=== PATIENT | female | born 1955 | race African-American/Black ===

== ENCOUNTER 2018-03-18 08:32 | Outpatient (CLI) | payer MEDICARE, MEDICAID ==
[2018-03-18] MEDS ORDERED: ISOVUE-370 76%-LOCM 1 ML ONE (12:13)
== END 2018-03-18 08:33 | disposition home or self-care (01) ==
LOC: BICCT 08:32
PROVIDERS: ATTEND Internal Medicine Gastroenterology
DX: R93.2 Abnormal findings on diagnostic imaging of liver and biliary tract (principal); R18.8 Other ascites; K74.60 Unspecified cirrhosis of liver; Z86.19 Personal history of other infectious and parasitic diseases
CPT/HCPCS: 74170

== ENCOUNTER 2018-05-28 09:26 | Outpatient (CLI) | payer MEDICARE, MEDICAID | END 2018-05-28 09:27 | disposition home or self-care (01) | LOC: BICMAMMO 09:26 | DX: Z12.31 Encounter for screening mammogram for malignant neoplasm of breast (principal); Z80.3 Family history of malignant neoplasm of breast | CPT/HCPCS: 77063; 77067 ==

== ENCOUNTER 2018-12-28 09:06 | Outpatient (CLI) | payer MEDICARE, MEDICAID ==
[2018-12-28] MEDS ORDERED: ISOVUE-370 76%-LOCM 1 ML ONE (09:59)
--- NOTE | 2018-12-28 12:23 | CT ---
CT ABDOMEN WITH AND WITHOUT IV CONTRAST: Date: 12/28/18 HISTORY: Cirrhosis. Chronic liver disease. COMPARISON: 03/18/18. FINDINGS: The superiormost image shows a [id number] subtle parenchymal opacity at the anterior left lateral costophrenic angle of the lung. Gallbladder is surgically absent. Postoperative changes of the anterior abdominal wall. Calcification within the arterial structures. Nodular contour of the liver, consistent with cirrhosis, is unchanged in appearance from the prior st udy. The tiny low density lesion within the far inferior aspect of the right liver lobe, measuring 0. 7 cm greatest diameter, is unchanged in size and appearance. No new liver lesions are apparent. No free fluid within the abdomen. The pelvis was not imaged. IMPRESSION: 1. Stable CT appearance of the very small low density lesion within the inferior aspect of the right liver lobe. Probable cyst. No new abnormalities are demonstrated. 2. Atherosclerosis. 3. New subtle minimal patchy infiltrate at the lateral aspect of the left lung base. Possible small focus of pneumonitis. [id number] appearance. POS: [facility]
== END 2018-12-28 09:07 | disposition home or self-care (01) ==
LOC: BICCT 09:06
PROVIDERS: ATTEND Internal Medicine Gastroenterology
DX: K74.60 Unspecified cirrhosis of liver (principal); I70.0 Atherosclerosis of aorta; R91.8 Other nonspecific abnormal finding of lung field; K76.89 Other specified diseases of liver
CPT/HCPCS: 74170; 82565

== ENCOUNTER 2019-05-31 11:05 | Outpatient (CLI) | payer MEDICARE, MEDICAID ==
--- NOTE | 2019-05-31 14:24 | MMO ---
Bilateral MAMMO Bilat Screen [facility]. CLINICAL HISTORY: Patient is 63 years old and is seen for screening. The patient has the following family history of breast cancer: mother, at age 72, malignant (generic). The patient has no personal history of cancer. VIEWS: The views performed were: bilateral craniocaudal with tomosynthesis and bilateral mediolateral oblique with tomosynthesis. FILMS COMPARED: The present examination has been compared to prior imaging studies performed at [facility] on 03/29/2015, 04/01/2016, 05/27/2017 and 05/28/2018. MAMMOGRAM FINDINGS: There are scattered fibroglandular densities. Benign calcifications are noted bilaterally. There are no suspicious masses, suspicious calcifications, or new areas of architectural distortion. IMPRESSION: THERE IS NO MAMMOGRAPHIC EVIDENCE OF MALIGNANCY. A ROUTINE FOLLOW-UP MAMMOGRAM IN 1 YEAR IS RECOMMENDED. THE RESULTS OF THIS EXAM WERE SENT TO THE PATIENT. ACR BI-RADS Category 2 - Benign finding MAMMOGRAPHY NOTE: 1. A negative mammogram report should not delay a biopsy if a dominant of clinically suspicious mass is present. 2. Approximately 10% to 15% of breast cancers are not detected by mammography. 3. Adenosis and dense breasts may obscure an underlying neoplasm. Reported by: MOJGAN LOPEZ MD Electonically Signed: [id number]
== END 2019-05-31 11:06 | disposition home or self-care (01) ==
LOC: BICMAMMO 11:05
PROVIDERS: ATTEND Physician Assistant
DX: Z12.31 Encounter for screening mammogram for malignant neoplasm of breast (principal); Z80.3 Family history of malignant neoplasm of breast
CPT/HCPCS: 77063; 77067

== ENCOUNTER 2019-07-27 09:03 | Outpatient (CLI) | payer MEDICARE, MEDICAID ==
--- NOTE | 2019-07-27 11:17 | ULT ---
ULTRASOUND HEPATIC DOPPLER: Date: 07/27/19 HISTORY: Cirrhosis. COMPARISON: CT 12/28/18. FINDINGS: Real-time and Cr[place]tree scale and color Doppler and spectral analysis of the liver and hepatic vessels was performed. Visualized portions of the aorta, IVC, and pancreas unremarkable. Hepatic contour is nodular. The ech otexture is coarsened. No hepatic mass is appreciated. Prior cholecystectomy. The previously described hepatic cyst is not well seen. Normal directional flow within the hepatic vessels, including the portal vessels, which are patent. H epatic artery is patent with normal directional flow. Liver measures 17.2 cm in length. Common bile duct is normal, measuring 4 mm. Spleen is enlarged, nicholas suring 12.1 cm. Splenic vessels are patent. IMPRESSION: 1. Hepatic cirrhosis without visualized mass. 2. Patent portal vein. 3. Enlarged spleen suggesting early portal hypertension. POS: [facility]
== END 2019-07-27 09:04 | disposition home or self-care (01) ==
LOC: BICULT 09:03
PROVIDERS: ATTEND Physician Assistant Medical
DX: K74.60 Unspecified cirrhosis of liver (principal); R16.1 Splenomegaly, not elsewhere classified
CPT/HCPCS: 76705

== ENCOUNTER 2020-03-23 08:44 | Outpatient (CLI) | payer MEDICARE, MEDICAID ==
[2020-03-23 09:24] LABS: Estimated GFR-MDRD - POC Greater than 90
--- NOTE | 2020-03-23 09:53 | CT ---
Exam: Abdomen CT with and without contrast HISTORY: Liver cirrhosis. Hepatitis C. Hepatic cyst COMPARISON: 12/28/2018, 03/18/2018, 10/31/2016 TECHNIQUE: Abdomen CT is performed with and without IV contrast. FINDINGS: Lung bases: Clear Heart: Normal heart size. No significant pericardial fluid Aorta: Scattered atherosclerosis. No aneurysm, dissection or periaortic fat stranding Liver: Nodularity compatible with cirrhosis. No abnormal enhancement on the arterial phase image. No abnormal enhancement on the delayed images. There is a hypodensity in the sixth hepatic segment measuring 0.7 cm. Hypodensity is unchanged from the previous examination as well as the examination f rom 10/31/2016.. Lesion continues to be indeterminate. Spleen: Appropriate enhancement Pancreas: Appropriate enhancement Adrenal glands: Symmetric enhancement Lymph nodes: No gastrohepatic, retrocrural or periportal lymphadenopathy Portal vein: Patent Gallbladder: Surgically absent Kidneys: Noncontrast: No hydronephrosis, nephrolithiasis or perinephric fat stranding Contrast: Symmetric enhancement of the renal parenchyma Delayed: Symmetric enhancement. Mesentery: No mass, nephropathy, free air or free fluid Alimentary canal: Limited evaluation due to lack of oral contrast administration. No evidence of val l obstruction. The ileocecal junction is normal. Normal caliber appendix. Scattered fecal material in a nondistended/nondilated colon. No lytic or blastic lesions in the osseous structures IMPRESSION: 1. Stable nodularity of the liver compatible with patient's history of cirrhosis. 2. Stable 0.7 cm hypodensity in the right hepatic lobe.
[2020-03-23] MEDS ORDERED: Iopamidol 370 76% 100 ML VIAL ONE (09:56)
== END 2020-03-23 08:45 | disposition home or self-care (01) ==
LOC: BICCT 08:44
PROVIDERS: ATTEND Physician Assistant Medical
DX: K74.60 Unspecified cirrhosis of liver (principal); R93.3 Abnormal findings on diagnostic imaging of other parts of digestive tract; K76.89 Other specified diseases of liver
CPT/HCPCS: 74170; 82565; Q9967

== ENCOUNTER 2020-07-19 15:40 | Outpatient (CLI) | payer MEDICARE, MEDICAID ==
--- NOTE | 2020-07-19 16:05 | MMO ---
Bilateral MAMMO Bilat Screen [facility]. CLINICAL HISTORY: Patient is 65 years old and is seen for screening. The patient has the following family history of breast cancer: mother, at age 72, malignant (generic). The patient has no personal history of cancer. VIEWS: The views performed were: bilateral craniocaudal with tomosynthesis and bilateral mediolateral oblique with tomosynthesis. FILMS COMPARED: The present examination has been compared to prior imaging studies performed at [facility] on 04/01/2016, 05/27/2017, 05/28/2018 and 05/31/2019. This study has been interpreted with the assistance of computer-aided detection. MAMMOGRAM FINDINGS: There are scattered fibroglandular densities. There are no suspicious masses, suspicious calcifications, or new areas of architectural distortion. IMPRESSION: THERE IS NO MAMMOGRAPHIC EVIDENCE OF MALIGNANCY. A ROUTINE FOLLOW-UP MAMMOGRAM IN 1 YEAR IS RECOMMENDED. THE RESULTS OF THIS EXAM WERE SENT TO THE PATIENT. ACR BI-RADS Category 1 - Negative MAMMOGRAPHY NOTE: 1. A negative mammogram report should not delay a biopsy if a dominant of clinically suspicious mass is present. 2. Approximately 10% to 15% of breast cancers are not detected by mammography. 3. Adenosis and dense breasts may obscure an underlying neoplasm. Reported by: GEGE LR MD Electonically Signed: [id number]
== END 2020-07-19 15:41 | disposition home or self-care (01) ==
LOC: BICMAMMO 15:40
PROVIDERS: ATTEND Physician Assistant
DX: Z12.31 Encounter for screening mammogram for malignant neoplasm of breast (principal); Z80.3 Family history of malignant neoplasm of breast
CPT/HCPCS: 77063; 77067

== ENCOUNTER 2020-09-17 08:28 | Outpatient (CLI) | payer MEDICARE, MEDICAID ==
--- NOTE | 2020-09-17 09:05 | ULT ---
Hepatic ultrasound with duplex evaluation INDICATION: History of cirrhosis TECHNIQUE: Grayscale, color Doppler and spectral Doppler images were obtained of the liver, gallbladd er, common bile duct, pancreas, right kidney and spleen. COMPARISON: Prior hepatic duplex ultrasound dated July 27, [address] the abdomen with and wi thout contrast dated March 23, 2020 FINDINGS: Liver: There is a coarse echotexture of the liver with a nodular contour consistent with changes of c irrhosis. The liver measures 17.02 cm in length. No focal hepatic lesion is demonstrated. Hepatic vasculature: Left hepatic vein: Appropriate flow. Middle hepatic vein: Appropriate flow. Right hepatic vein: Appropriate flow. Hepatic artery: Hepatopedal flow. Main portal vein: Hepatopedal flow. Right portal vein: Hepatopedal flow. Left portal vein: Hepatopedal flow. Splenic artery: Appropriate flow. Splenic vein: Hepatopedal flow. Aorta: Appropriate flow. IVC: Appropriate flow. Gallbladder: Surgically absent Common bile duct: 7.5 mm. Pancreas: Visualized pancreas appears within normal limits. Right kidney: Partially visualized normal appearing Spleen: The spleen measured 11.7cm in length. IMPRESSION: 1. Cirrhotic morphology of the liver without focal hepatic lesion. Appropriate hepatopedal flow. 2. Cholecystectomy .
== END 2020-09-17 08:29 | disposition home or self-care (01) ==
LOC: BICULT 08:28
PROVIDERS: ATTEND Internal Medicine Gastroenterology
DX: K74.60 Unspecified cirrhosis of liver (principal); R93.3 Abnormal findings on diagnostic imaging of other parts of digestive tract; Z90.49 Acquired absence of other specified parts of digestive tract
CPT/HCPCS: 76705

== ENCOUNTER 2021-07-22 14:41 | Outpatient (CLI) | payer MEDICARE, MEDICAID | END 2021-07-22 14:42 | disposition home or self-care (01) | LOC: BICMAMMO 14:41 | PROVIDERS: ATTEND Physician Assistant | DX: Z12.31 Encounter for screening mammogram for malignant neoplasm of breast (principal); Z80.3 Family history of malignant neoplasm of breast | CPT/HCPCS: 77063; 77067 ==

== ENCOUNTER 2022-07-24 08:21 | Outpatient (CLI) | payer OTHER, MEDICAID | END 2022-07-24 08:22 | disposition home or self-care (01) | LOC: BICMAMMO 08:21 | PROVIDERS: ATTEND Physician Assistant | DX: Z12.31 Encounter for screening mammogram for malignant neoplasm of breast (principal); Z80.3 Family history of malignant neoplasm of breast | CPT/HCPCS: 77063; 77067 ==

== ENCOUNTER 2023-06-25 19:44 | Inpatient (IN) | payer OTHER ==
[~2023-06-25 19:44] MED LIST: Iopamidol-370 76% 500 ML MDV (1 ML CHARGE) ONE
[2023-06-25 20:27] LABS: #Basophils 0.1 thou/uL (0.0-0.2); #Monocytes 1.6 thou/uL (0.11-0.59); #Neutrophils 16.6 thou/uL (1.40-6.50); %Basophils 0.3 % (0.0-1.0); %Eosinophils 0.1 % (0.0-10.0); %Lymphocytes 8.6 % (21.0-51.0); Hematocrit 30.4 % (36.0-47.0); Hemoglobin 9.5 g/dL (12.0-16.0); Mean Corpuscular HGB CONC 31.3 g/dL (32.0-36.0); Mean Corpuscular Hemoglobin 28.2 pg (27.0-31.0); Mean Corpuscular Volume 90.2 fl (78.0-98.0); Mean Platelet Volume 13.8 fL (7.4-10.4); Platelet Count 111 10x3/uL (130-400); RBC Distribution Width 12.8 % (11.5-14.5); Red Blood Cell (RBC) Count 3.37 mill/uL (4.20-5.40); White Blood Cell (WBC) Count 20.2 10x3/uL (4.8-10.8)
[2023-06-25 20:57] LABS: ALT (SGPT) 20 U/L (8-55); AST (SGOT) 20 U/L (5-34); Albumin 3.2 g/dL (3.4-4.8); Alkaline Phosphatase 90 U/L (40-110); Anion Gap 11 mmol/L (10-20); BUN (Urea Nitrogen) 20 mg/dL (9.8-20.1); Bilirubin, Total 0.9 mg/dL (0.2-1.2); Calc. Creatinine Clearance 0 mL/min (70-130); Calcium 8.5 mg/dL (7.8-10.44); Carbon Dioxide 24 mmol/L (23-31); Chloride 104 mmol/L (98-107); Estimated GFR 53; Potassium 3.4 mmol/L (3.5-5.1); Protein, Total 6.2 g/dL (5.8-8.1); Sodium 136 mmol/L (136-145)
[2023-06-25] MEDS ORDERED: Cefepime 2 GM VIAL ONE (21:16)
[2023-06-25 21:18] LABS: Troponin I Less than 0.010 ng/mL (< 0.028)
[2023-06-25 21:39] LABS: Glucose 176 mg/dL (80-115)
[2023-06-25 21:55] LABS: Bacteria/HPF None Seen HPF (None Seen); Bilirubin Negative (Negative); Blood, Urine Negative (Negative); CAUTI Indications for Culture Dysuria,urgency,freq; Clarity Turbid (Clear); Glucose, Urine (Dipstick) Normal (Negative); Ketone, Urine Negative (Negative); Leukocyte 500 Leu/uL (Negative); Nitrite Negative (Negative); Protein, Urine (Dipstick) 30 mg/dL (Neg-Trace); RBC/HPF 0-3 HPF (0-3); Specific Gravity, Urine 1.019 (1.002-1.036); Squamous Epithelial 0-3 HPF (0-3); Urobilinogen Greater than 12 mg/dL (Less than 2); WBC/HPF Greater than 50 HPF (0-3)
[2023-06-25 21:56] LABS: Urine Culture Reflex Yes Yes
[2023-06-25] MEDS ORDERED: Vancomycin 1 GM/200 ML (FROZEN) BAG ONE (22:50)
[2023-06-26] MEDS ORDERED: Sodium Chloride 0.9% 1,000 ML IV SCH (01:00)
[2023-06-26] MEDS ORDERED: traMADol HCl 50 MG TAB PO PRN (01:17)
[2023-06-26] MEDS ORDERED: tiZANidine HCl 4 MG TAB PO PRN (01:17)
[2023-06-26] MEDS ORDERED: Glucagon 1 MG/ML KIT IM PRN (01:18)
[2023-06-26] MEDS ORDERED: Ondansetron ODT 4 MG TAB PO PRN (01:18)
[2023-06-26] MEDS ORDERED: Senokot S 8.6-50 MG TAB PO PRN (01:18)
[2023-06-26] MEDS ORDERED: Dextrose 50% Abboject 50 ML SYRINGE SLOW IVP PRN (01:18)
[2023-06-26] MEDS ORDERED: HumaLOG 300 UNITS/3 ML VIAL SC PRN ×2 (01:18)
[2023-06-26] MEDS ORDERED: Dextrose 5% in Water 1,000 ML IV PRN (01:18)
[2023-06-26] MEDS ORDERED: Electrolyte Replacement Protocol 1 EACH FS SCH (01:20)
[2023-06-26] MEDS: Acetaminophen 325 MG TAB PO PRN ×2 (05:43→16:56)
[2023-06-26 07:56] LABS: Hemoglobin 9.4 g/dL (12.0-16.0); Mean Corpuscular HGB CONC 32.4 g/dL (32.0-36.0); Mean Corpuscular Hemoglobin 28.7 pg (27.0-31.0); Mean Corpuscular Volume 88.4 fl (78.0-98.0); Mean Platelet Volume 14.8 fL (7.4-10.4); Platelet Count 106 10x3/uL (130-400); RBC Distribution Width 12.7 % (11.5-14.5); Red Blood Cell (RBC) Count 3.28 mill/uL (4.20-5.40); White Blood Cell (WBC) Count 19.7 10x3/uL (4.8-10.8)
[2023-06-26] MEDS ORDERED: Potassium Chloride 20 MEQ TAB PO SCH ×2 (08:00→12:00)
[2023-06-26 08:03] LABS: Delete Auto Diff?? YES; Manual Diff?? YES
[2023-06-26 08:14] LABS: Anion Gap 12 mmol/L (10-20); BUN (Urea Nitrogen) 10 mg/dL (9.8-20.1); Calc. Creatinine Clearance 76 mL/min (70-130); Calcium 8.3 mg/dL (7.8-10.44); Carbon Dioxide 22 mmol/L (23-31); Chloride 109 mmol/L (98-107); Estimated GFR 90; Glucose 125 mg/dL (80-115); Potassium 2.9 mmol/L (3.5-5.1); Sodium 140 mmol/L (136-145)
[2023-06-26 08:31] LABS: Band 16 % (5-11); Burr Cells SLIGHT = 2-5 cells HPF (0-1); CellaVision Operator ID LAB.GE; Lymphocytes 7 % (21-51); Monocytes 2 % (0-10); Neutrophil 75 % (42-75); Platelet Adequacy Comment Platelets Decreased; Polychromasia SLIGHT = 2-3 cells HPF (0-2); Total Cell Count 100
[2023-06-26] MEDS: Amlodipine 10 MG TAB PO SCH (09:05)
[2023-06-26] MEDS: cefTRIAXone\\ROCEPHIN 1 GM in Sodium Chloride 0.9% 100 ML IVPB SCH (09:05)
[2023-06-26] MEDS: Lisinopril 20 MG TAB PO SCH (09:05)
[2023-06-26] MEDS: Insulin Glargine 30 UNITS/0.3 ML VIAL SC SCH (09:05)
[2023-06-26] MEDS ORDERED: HYDROcodone/Acetaminophen 5/325 mg Tablet PO PRN (10:10)
[2023-06-26] MEDS ORDERED: HYDROcodone/Acetaminophen 10/325 mg Tablet PO PRN (10:11)
[2023-06-26 10:51] LABS: Magnesium 1.8 mg/dL (1.6-2.6)
[2023-06-26] MEDS: 1/2 NS w/KCL 20 mEq 1,000 ML IV SCH ×3 (11:21→22:00)
[2023-06-26 11:31] VITALS: BMI 22.8
[2023-06-26] MEDS ORDERED: Magnesium 2 GM/50 ML(in water) 2 GM in Premix Bag 1 BAG IVPB SCH (12:00)
[2023-06-27] MEDS: Acetaminophen 325 MG TAB PO PRN (00:13)
[2023-06-27] MEDS: 1/2 NS w/KCL 20 mEq 1,000 ML IV SCH (05:00)
[2023-06-27 07:57] LABS: #Basophils 0.1 thou/uL (0.0-0.2); #Monocytes 1.4 thou/uL (0.11-0.59); #Neutrophils 19.9 thou/uL (1.40-6.50); %Basophils 0.3 % (0.0-1.0); %Eosinophils 0.1 % (0.0-10.0); %Lymphocytes 4.6 % (21.0-51.0); %Monocytes 6.1 % (0.0-10.0); %Neutrophils 87.5 % (42.0-75.0); Hematocrit 29.7 % (36.0-47.0); Hemoglobin 9.6 g/dL (12.0-16.0); Mean Corpuscular HGB CONC 32.3 g/dL (32.0-36.0); Mean Corpuscular Hemoglobin 28.3 pg (27.0-31.0); Mean Corpuscular Volume 87.6 fl (78.0-98.0); Mean Platelet Volume 14.1 fL (7.4-10.4); RBC Distribution Width 12.7 % (11.5-14.5); Red Blood Cell (RBC) Count 3.39 mill/uL (4.20-5.40); White Blood Cell (WBC) Count 22.7 10x3/uL (4.8-10.8)
[2023-06-27 08:10] LABS: Platelet Count 115 10x3/uL (130-400)
[2023-06-27 08:19] LABS: Anion Gap 12 mmol/L (10-20); BUN (Urea Nitrogen) 9 mg/dL (9.8-20.1); Calc. Creatinine Clearance 79 mL/min (70-130); Calcium 8.6 mg/dL (7.8-10.44); Carbon Dioxide 19 mmol/L (23-31); Chloride 104 mmol/L (98-107); Estimated GFR 93; Glucose 94 mg/dL (80-115); Magnesium 1.9 mg/dL (1.6-2.6); Potassium 3.9 mmol/L (3.5-5.1); Sodium 131 mmol/L (136-145)
[2023-06-27 08:28] LABS: INR-International Normal Ratio 1.3; PTT 43.1 sec (22.9-36.1); Prothrombin Time 17.2 sec (12.0-14.7)
[2023-06-27] MEDS: cefTRIAXone\\ROCEPHIN 1 GM in Sodium Chloride 0.9% 100 ML IVPB SCH (08:50)
[2023-06-27] MEDS: Lisinopril 20 MG TAB PO SCH (08:51)
[2023-06-27] MEDS: Amlodipine 10 MG TAB PO SCH (08:51)
[2023-06-27] MEDS: Insulin Glargine 30 UNITS/0.3 ML VIAL SC SCH (08:53)
[2023-06-27] MEDS ORDERED: metroNIDAZOLE 500 MG in Premix Bag 1 BAG IVPB SCH (09:00)
[2023-06-27 10:59] VITALS: BP 137/66; TEMP 98.8
[2023-06-27] MEDS ORDERED: Piperacillin/Tazobactam 3.375 GM in Sodium Chloride 0.9% 100 ML IVPB SCH ×3 (11:15→17:00)
[2023-06-27] MEDS ORDERED: Doxycycline 100 MG CAP PO SCH ×2 (12:00→21:00)
== END 2023-06-27 13:20 | disposition short-term general hospital (02) | DRG 872 ==
LOC: ERS 19:44 → SJJU 23:41
PROVIDERS: ADMIT Student in an Organized Health Care Education/Training Program; ATTEND Student in an Organized Health Care Education/Training Program
PROC: 3E03329 Introduction of Other Anti-infective into Peripheral Vein, Percutaneous Approach (ICD-10-PCS; principal; 2023-06-25)
PROC: 0T9B70Z Drainage of Bladder with Drainage Device, Via Natural or Artificial Opening (ICD-10-PCS; 2023-06-25)
DX: A41.9 Sepsis, unspecified organism (principal); N17.9 Acute kidney failure, unspecified; N39.0 Urinary tract infection, site not specified; E11.9 Type 2 diabetes mellitus without complications; E78.5 Hyperlipidemia, unspecified; E87.6 Hypokalemia; D64.9 Anemia, unspecified; N70.93 Salpingitis and oophoritis, unspecified; Z98.890 Other specified postprocedural states
CPT/HCPCS: 36415; 36416; 51702; 71045; 72192; 74177; 76856; 77012; 80048; 80053; 81001; 83605; 83735; 84484; 85025; 85610; 85730; 87040; 87086; 93005; 96361; 96365; 96375; J0692; J0696; J1815; J2543; J3370-JW; J3475; J3480; J3490; J7050; Q9967

== ENCOUNTER 2024-04-12 08:30 | Outpatient (CLI) | payer OTHER, MEDICAID | END 2024-04-12 08:31 | disposition home or self-care (01) | LOC: BICMAMMO 08:30 | PROVIDERS: ATTEND Nurse Practitioner Family | DX: Z12.31 Encounter for screening mammogram for malignant neoplasm of breast (principal); Z80.3 Family history of malignant neoplasm of breast | CPT/HCPCS: 77063; 77067 ==